=== PATIENT | female | born 1970 | race Caucasian/White ===

== ENCOUNTER → 2019-11-15 | Outpatient (CLI) | payer BC ==
[~2019-11-15] MED LIST: ALBU17AE3 IH; ASP325T PO; DOCU100C37 PO; FERR325T18 PO; HYDR-34 PO; IBUP-1773 PO; IRON45TA2 PO; LEVO500T69 PO; METH4TAB PO; SIME80TA16 PO
== END ==
LOC: CARD 10:41
PROVIDERS: ATTEND Internal Medicine Cardiovascular Disease
DX: R07.89 Other chest pain (principal); E78.2 Mixed hyperlipidemia; I10 Essential (primary) hypertension; Z72.0 Tobacco use
CPT/HCPCS: 93306

== ENCOUNTER → 2019-11-27 | Outpatient (CLI) | payer BC ==
[~2019-11-27] VITALS: Ht 167 cm; Wt 100.0 kg
[~2019-11-27] MED LIST changes: +CATHETER FLUSH 10 ML SYR IV PRN
[2019-11-27 09:24] VITALS: BP 137/107
--- NOTE | 2019-11-27 17:06 | STRESS TEST ---
DATE OF SERVICE: 11/27/2019 EXERCISE MYOVIEW STRESS TEST REPORT REFERRING PHYSICIAN: Dr. Grover. Baseline heart rate is 74, baseline blood pressure 125/75. Baseline EKG is sinus rhythm with no ischemic changes. In summary, the patient was injected with 10.99 mCi of technetium-99 Myoview and the resting images were obtained. Then, the patient started exercising with baseline heart rate, blood pressure and EKG mentioned above, was able to exercise for 5 minutes 15 seconds on standard Geovany protocol. With peak exercise level, EKG was showing minimal nondiagnostic changes. No acute ischemic abnormality was noted. During recovery, heart rate and blood pressure returned to baseline. EKG returned to baseline. The resting and stress images were reviewed and compared in the short axis, horizontal long axis, and vertical long axis views. Review of the images showed diaphragmatic attenuation with decreased uptake involving the whole inferior wall and inferolateral wall. SSS is 9, SDS 9. Mild reversibility was noted. TID value 0.9. On the gated images, the left ventricle appeared to be normal size with normal contractility. Calculated ejection fraction 81%. CONCLUSION: 1. Fair exercise tolerance, a total of 5 minutes 15 seconds on standard Geovany protocol, total of 7.1 METS achieving 93% of maximum expected heart rate. 2. Severe hypertensive response to exercise with peak blood pressure 202/109 returned to baseline during recovery. 3. Nondiagnostic EKG changes with exercise returned to baseline during recovery. 4. Diaphragmatic attenuation with reversible ischemia involving the whole inferior wall and inferolateral wall. 5. Normal left ventricular size with normal contractility. Calculated ejection fraction 81%. Job ID: [id number] DocumentID: [id number] Dictated Date: 11/27/2019 14:46:10 Candy Forming Machine Operator Date: 11/27/2019 17:05:21 Dictated By: YENY COLE MD
== END ==
LOC: CARD 07:02
PROVIDERS: ATTEND Internal Medicine Cardiovascular Disease
DX: E78.2 Mixed hyperlipidemia (principal); I10 Essential (primary) hypertension; R07.89 Other chest pain; Z72.0 Tobacco use
CPT/HCPCS: 78452; 93017

== ENCOUNTER 2019-12-02 09:54 | Observation (INO) | payer BC ==
[~2019-12-02] VITALS: Ht 167.7 cm; Wt 98.0 kg
[2019-12-02] VITALS (11 sets, daily range): BP systolic 94–138; BP diastolic 62–95
[~2019-12-02 09:54] MED LIST changes: -CATHETER FLUSH 10 ML SYR IV PRN
[2019-12-02] MEDS ORDERED: ASPIRIN 81 MG CHEW (CHILDREN'S ASA) ONE (09:56)
[2019-12-02] MEDS ORDERED: NITROGLYCERIN 0.4 MG SL TABS BTL 25'S SL ONE (09:56)
[2019-12-02 10:13] LABS: BASOPHILS % (AUTO) 0 % (0-10); EOSINOPHILS # (AUTO) 0.1 10^3/uL (0.0-0.3); EOSINOPHILS % (AUTO) 1 % (0-10); HEMATOCRIT 45 % (35-52); HEMOGLOBIN 15.3 G/DL (11.5-16.0); LYMPHOCYTES # (AUTO) 2.2 X 10^3 (1.0-4.0); LYMPHOCYTES % (AUTO) 13 % (12-44); MEAN CORPUSCULAR HEMOGLOBIN 31 PG (25-34); MEAN CORPUSCULAR HGB CONC 34 G/DL (32-36); MEAN CORPUSCULAR VOLUME 92 FL (80-99); MEAN PLATELET VOLUME 10.2 FL (7.4-10.4); MONOCYTES % (AUTO) 6 % (0-12); NEUTROPHILS # (AUTO) 13.7 X 10^3 (1.8-7.8); NEUTROPHILS % (AUTO) 80 % (42-75); PLATELET COUNT 415 10^3/uL (130-400); WHITE BLOOD COUNT 17.1 10^3/uL (4.3-11.0)
[2019-12-02] MEDS ORDERED: ASPIRIN 81 MG CHEW (CHILDREN'S ASA) PO ONE (10:15)
[2019-12-02] MEDS ORDERED: NITROGLYCERIN 0.4 MG SL TABS BTL 25'S SL PRN ×2 (10:15→13:00)
[2019-12-02 10:30] LABS: INR 0.9 (0.8-1.4); PROTHROMBIN TIME PATIENT 12.1 SEC (12.2-14.7)
--- NOTE | 2019-12-02 10:30 | Diagnostic Imaging Report ---
INDICATION: Chest pain Portable chest 10:22 AM Heart size and pulmonary vascularity are normal. Lungs are clear. There are no effusions or pneumothoraces. IMPRESSION: Negative chest. Dictated by: Dictated on workstation # [id number]
--- NOTE | 2019-12-02 10:46 | ED Chest Pain ---
General Chief Complaint: Chest Pain Stated Complaint: CHEST PAIN Nursing Triage Note: PT AMB TO RM 2 WITH COMPLAINT OF CP. STATES STARTED AROUND 5 AM THIS MORNING. STATES PAIN RADIATES TO HER LEFT ELBOW. IS SCHEDULED FOR HEART CATH ON THE WITH DR EID FOR BLOCKAGES Nursing Sepsis Screen: No Definite Risk Source: patient, old records Exam Limitations: no limitations History of Present Illness Date Seen by Provider: Dec 02, 2019 Time Seen by Provider: 09:59 Initial Comments This 49-year-old woman presents to the emergency room with chest pain that started around 5:15 this morning. Pain was accompanied by diaphoresis and radiated to her left elbow. Pain dissipated but then she had 2 additional episodes at work. She had a fourth episode while in the emergency room. She related that episode as 5/10 on the pain scale. This pain resolved with nitroglycerin. She had a stress test performed last month and reversible ischemia was noted. She has a scheduled heart catheter with Dr. Eid for December 10. She has risk factors including hypertension, hyperlipidemia, and tobacco use. Allergies and Home Medications Allergies Coded Allergies: iopamidol (Unverified Allergy, Intermediate, RASH, ITCHING, 05/26/16) Home Medications Docusate Sodium 100 Mg Capsule, 100 MG PO BID PRN for CONSTIPATION Prescribed by: CHRIS MELENDZE on 05/27/16950 Ferrous Sulfate 325 Mg Tablet, 325 MG PO DAILY Prescribed by: CHRIS MELENDEZ on 05/27/16950 Hydrocodone Bit/Acetaminophen 1 Each Tablet, 1-2 EA PO Q6H PRN for PAIN Prescribed by: CHRIS MELENDEZ on 05/27/16950 Ibuprofen 600 Mg Tablet, 600 MG PO Q6H PRN for PAIN Prescribed by: CHRIS MELENDEZ on 05/27/16950 Simethicone 80 Mg Tab.chew, 40 MG PO TID PRN for INDIGESTION Prescribed by: CHRIS MELENDEZ on 05/27/16950 Patient Home Medication List Home Medication List Reviewed: Yes Review of Systems Review of Systems Constitutional: see HPI, diaphoresis EENTM: No Symptoms Reported Respiratory: No Symptoms Reported Cardiovascular: See HPI Gastrointestinal: No Symptoms Reported Genitourinary: No Symptoms Reported Musculoskeletal: no symptoms reported Skin: no symptoms reported Psychiatric/Neurological: No Symptoms Reported Endocrine: No Symptoms Reported Hematologic/Lymphatic: No Symptoms Reported Past Dsubzkv-Zcdgcg-Fhrdou Hx Past Med/Social Hx: Reviewed Nursing Past Med/Soc Hx Patient Social History Alcohol Use: Regular Use Number of Drinks Today: AA Alcohol Beverage of Choice: Beer Recreational Drug Use: No Smoking Status: Current Everyday Smoker Type Used: Cigarettes Recent Foreign Travel: No Contact w/Someone Who Travel: No Recent Infectious Disease Expo: No Recent Hopitalizations: Yes (TRANSFUSION FOR ANEMIA 3 UNITS) Immunizations Up To Date Tetanus Booster (TDap): Unknown Seasonal Allergies Seasonal Allergies: No Past Medical History Surgeries: Yes Hysterectomy Respiratory: No Cardiac: Yes (reversible ischemia on stress test) High Cholesterol, Hypertension Neurological: No : No Reproductive Disorders: Yes Female Reproductive Disorders: Menstrual Problems Sexually Transmitted Disease: No HIV/AIDS: No Genitourinary: No Gastrointestinal: No Musculoskeletal: No Endocrine: No Are Your Blood Sugars Over 250: No HEENT: No Cancer: No Psychosocial: No Integumentary: No Adverse Reaction/Blood Tranf: No Yes Family Medical History Reviewed and Corrections made No Pertinent Family Hx, Heart Disease (a grandfather had [place]) Physical Exam Vital Signs Vital Signs - First Documented 12/02/19 09:55 Pulse 114 Resp 17 B/P (MAP) 187/118 (141) Pulse Ox 98 O2 Delivery Room Air Capillary Refill : Less Than 3 Seconds Height, Weight, BMI Height: 5'8.00" Weight: 197lbs. 0.0oz. 89.086908lq; 34.00 BMI Method:Stated General Appearance: No Apparent Distress, WD/WN, Obese HEENT: PERRL/EOMI, Normal ENT Inspection Neck: Normal Inspection; No JVD Respiratory: Chest Non Tender, Lungs Clear, Normal Breath Sounds, No Accessory Muscle Use, No Respiratory Distress Cardiovascular: Regular Rate, Rhythm, No Edema, No Murmur, Normal Peripheral Pulses Gastrointestinal: Normal Bowel Sounds, Non Tender, Soft Extremity: Normal Inspection, Non Tender, No Calf Tenderness, No Pedal Edema Neurologic/Psychiatric: Alert, Oriented x3, No Motor/Sensory Deficits, Normal Mood/Affect, hand potter II-XII Norm as Tested Skin: Normal Color, Warm/Dry Progress/Results/Core Measures Results/Orders Lab Results Laboratory Tests Test 12/02/19 10:05 12/02/19 10:35 12/02/19 11:25 Range/Units White Blood Count 17.1 H 4.3-11.0 10^3/uL Red Blood Count 4.92 4.35-5.85 10^6/uL Hemoglobin 15.3 11.5-16.0 G/DL Hematocrit 45 35-52 % Mean Corpuscular Volume 92 80-99 FL Mean Corpuscular Hemoglobin 31 25-34 PG Mean Corpuscular Hemoglobin Concent 34 32-36 G/DL Red Cell Distribution Width 16.0 H 10.0-14.5 % Platelet Count 415 H 130-400 10^3/uL Mean Platelet Volume 10.2 7.4-10.4 FL Neutrophils (%) (Auto) 80 H 42-75 % Lymphocytes (%) (Auto) 13 12-44 % Monocytes (%) (Auto) 6 0-12 % Eosinophils (%) (Auto) 1 0-10 % Basophils (%) (Auto) 0 0-10 % Neutrophils # (Auto) 13.7 H 1.8-7.8 X 10^3 Lymphocytes # (Auto) 2.2 1.0-4.0 X 10^3 Monocytes # (Auto) 1.0 0.0-1.0 X 10^3 Eosinophils # (Auto) 0.1 0.0-0.3 10^3/uL Basophils # (Auto) 0.0 0.0-0.1 10^3/uL Neutrophils % (Manual) 76 % Lymphocytes % (Manual) 15 % Monocytes % (Manual) 7 % Eosinophils % (Manual) 2 % Basophils % (Manual) 0 % Band Neutrophils 0 % Anisocytosis SLIGHT Prothrombin Time 12.1 L 12.2-14.7 SEC INR Comment 0.9 0.8-1.4 Activated Partial Thromboplast Time 29 24-35 SEC Sodium Level 137 135-145 MMOL/L Potassium Level 4.1 3.6-5.0 MMOL/L Chloride Level 98 98-107 MMOL/L Carbon Dioxide Level 27 21-32 MMOL/L Anion Gap 12 5-14 MMOL/L Blood Urea Nitrogen 14 7-18 MG/DL Creatinine 0.86 0.60-1.30 MG/DL Estimat Glomerular Filtration Rate > 60 BUN/Creatinine Ratio 16 Glucose Level 154 H 70-105 MG/DL Calcium Level 9.3 8.5-10.1 MG/DL Corrected Calcium 8.5-10.1 MG/DL Magnesium Level 1.9 1.6-2.4 MG/DL Total Bilirubin 0.4 0.1-1.0 MG/DL Aspartate Amino Transf (AST/SGOT) 44 H 5-34 U/L Alanine Aminotransferase (ALT/SGPT) 83 H 0-55 U/L Alkaline Phosphatase 123 40-136 U/L Myoglobin 25.1 10.0-92.0 NG/ML Troponin I < 0.028 <0.028 NG/ML C-Reactive Protein High Sensitivity 1.53 H 0.00-0.50 MG/DL Total Protein 7.5 6.4-8.2 GM/DL Albumin 4.6 H 3.2-4.5 GM/DL Urine Color [place] H Urine Clarity CLEAR Urine pH 5.5 5-9 Urine Specific [place] >=1.030 1.016-1.022 Urine Protein NEGATIVE NEGATIVE Urine Glucose (UA) NEGATIVE NEGATIVE Urine Ketones NEGATIVE NEGATIVE Urine Nitrite NEGATIVE NEGATIVE Urine Bilirubin NEGATIVE NEGATIVE Urine Urobilinogen 0.2 < = 1.0 MG/DL Urine Leukocyte Esterase NEGATIVE NEGATIVE Urine RBC (Auto) NEGATIVE NEGATIVE Urine RBC NONE /HPF Urine WBC 0-2 /HPF Urine Squamous Epithelial Cells 5-10 /HPF Urine Crystals NONE /LPF Urine Bacteria FEW H /HPF Urine Casts NONE /LPF Urine Mucus MODERATE H /LPF Urine Culture Indicated NO My Orders Orders - SACHA ANN MD Nitroglycerin 0.4 Mg Btl 25's (Nitrostat (12/02/19 09:56) Aspirin Chewable Tablet (Baby Aspirin Ch (12/02/19 09:56) Cbc With Automated Diff (12/02/19 10:08) Magnesium (12/02/19 10:08) Chest 1 View, Ap/Pa Only (12/02/19 10:08) Ekg Tracing (12/02/19 10:08) Comprehensive Metabolic Panel (12/02/19 10:08) Myoglobin Serum (12/02/19 10:08) Protime With Inr (12/02/19 10:08) Partial Thromboplastin Time (12/02/19 10:08) O2 (12/02/19 10:08) Monitor-Rhythm Ecg Trace Only (12/02/19 10:08) Lipid Panel (12/03/19 06:00) Ed Iv/Invasive Line Start (12/02/19 10:08) Troponin I (12/02/19 10:08) Nitroglycerin 0.4 Mg Btl 25's (Nitrostat (12/02/19 10:15) Aspirin Chewable Tablet (Baby Aspirin Ch (12/02/19 10:15) Manual Differential (12/02/19 10:05) Hs C Reactive Protein (12/02/19 11:09) Ua Culture If Indicated (12/02/19 11:09) Medications Given in ED Current Medications Medications Dose Ordered Sig/Khloe Route Start Time Stop Time Status Last Admin Dose Admin Aspirin 81 mg STK-MED ONCE .ROUTE 12/02/19 09:56 12/02/19 10:01 DC 12/02/19 10:06 324 MG Nitroglycerin 0.4 mg STK-MED ONCE SL 12/02/19 09:56 12/02/19 10:01 DC 12/02/19 10:07 0.4 MG Vital Signs/I&O 12/02/19 12/02/19 09:55 09:55 Pulse 114 Resp 17 B/P (MAP) 187/118 (141) Pulse Ox 98 O2 Delivery Room Air Room Air Blood Pressure Mean: 141 Progress Progress Note #1: Time: 10:47 Progress Note Chest x-ray unremarkable. EKG demonstrated sinus tachycardia with no ST changes. Labs are pending. Patient was pain-free at the time of my exam. Progress Note #2: Time: 11:55 Progress Note Patient has had no further chest pain. Workup was unremarkable except for leukocytosis. Chest x-ray was negative for signs of infection. UA is pending. CRP was added and was low. Case was reviewed with Dr. Eid. Because of patien t's suspicious presentation and multiple risk factors, she will be admitted with planned to perform angiography this afternoon. Patient has already received aspirin and nitroglycerin. A single dose of Lovenox will be given in the ER. Initial ECG Impression Date: Dec 02, 2019 Initial ECG Impression Time: 09:59 Initial ECG Rate: 116 Initial ECG Rhythm: S.Tach Comment Sinus tachycardia with no ST elevation or depression. No abnormal intervals or axis deviation. Diagnostic Imaging Diagonstic Imaging: Xray Plain Films/CT/US/NM/MRI: chest Comments Chest x-ray viewed by me and report reviewed. See report below: NAME: DI ROBLES Dave [facility] REC#: [id number] PT STATUS: REG ER : 1970 PHYSICIAN: SACHA ANN MD ADMIT DATE: 12/02/19/ER Signed Date of Exam:12/02/19 CHEST 1 VIEW, AP/PA ONLY INDICATION: Chest pain Portable chest 10:22 AM Heart size and pulmonary vascularity are normal. Lungs are clear. There are no effusions or pneumothoraces. IMPRESSION: Negative chest. Dictated by: Dictated on workstation # [id number] Dict: 12/02/19 1027 Trans: 12/02/19 1030 [facility] [id number] Interpreted by: ELIZABET TRAVIS MD Electronically signed by: ELIZABET TRAVIS MD 12/02/19 1030 Departure Communication (Admissions) Time/Spoke to Admitting Phy: 11:33 Dr. Eid Impression Primary Impression: Chest pain Qualified Codes: R07.9 - Chest pain, unspecified Additional Impression: Leukocytosis Qualified Codes: D72.829 - Elevated white blood cell count, unspecified Disposition: ADMITTED INPATIENT Condition: Improved Admissions Decision to Admit Reason: Admit from ER (General) Decision to Admit/Date: Dec 02, 2019 Time/Decision to Admit Time: 10:35 Departure-Patient Inst. Referrals: NANCY ARELLANO DO (PCP/Family) Primary Care Physician SACHA ANN MD Dec 02, 2019 10:45
[2019-12-02 10:56] LABS: ANISOCYTOSIS SLIGHT; BAND NEUTROPHILS 0 %; BASOPHILS % (MANUAL) 0 %; EOSINOPHILS % (MANUAL) 2 %; LYMPHOCYTES % (MANUAL) 15 %; MONOCYTES % (MANUAL) 7 %; NEUTROPHILS % (MANUAL) 76 %
[2019-12-02 11:04] LABS: ALANINE AMINOTRANSFERASE 83 U/L (0-55); ALBUMIN 4.6 GM/DL (3.2-4.5); ALKALINE PHOSPHATASE 123 U/L (40-136); BILIRUBIN,TOTAL 0.4 MG/DL (0.1-1.0); BUN/CREATININE RATIO 16; CALCIUM 9.3 MG/DL (8.5-10.1); CARBON DIOXIDE 27 MMOL/L (21-32); CHLORIDE 98 MMOL/L (98-107); CREATININE SERUM 0.86 MG/DL (0.60-1.30); GFR ESTIMATED > 60; GLUCOSE 154 MG/DL (70-105); MAGNESIUM 1.9 MG/DL (1.6-2.4); POTASSIUM 4.1 MMOL/L (3.6-5.0); SODIUM 137 MMOL/L (135-145); TOTAL PROTEIN 7.5 GM/DL (6.4-8.2)
[2019-12-02 11:37] LABS: BILIRUBIN,URINE NEGATIVE (NEGATIVE); CLARITY,URINE CLEAR; COLOR,URINE AMBER; GLUCOSE, URINE (UA) NEGATIVE (NEGATIVE); KETONES,URINE NEGATIVE (NEGATIVE); LEUKOCYTE ESTERASE ,URINE NEGATIVE (NEGATIVE); NITRITE,URINE NEGATIVE (NEGATIVE); PH,URINE 5.5 (5-9); PROTEIN,URINE NEGATIVE (NEGATIVE)
[2019-12-02 11:50] LABS: BACTERIA,URINE FEW /HPF; WBC,URINE 0-2 /HPF
[2019-12-02] MEDS ORDERED: ENOXAPARIN 100 MG/1 ML (LOVENOX) SYR SC ONE (12:00)
--- NOTE | 2019-12-02 12:30 | NUR ---
DR COLE HERE TO SEE PT
--- NOTE | 2019-12-02 12:40 | NUR ---
SBAR report received from Margaux VELASQUEZ. Patient arrived to room ICU12 at 1240. Patient is alert and oriented. VSS. Patient denies pain att. Bed in lowest position, call light in reach, will continue to monitor. family is at bedside.
--- NOTE | 2019-12-02 12:44 | Cardiology History & Physical ---
HPI-Cardiology Cardiology Consultation Date of Consultation 12/02/19 Date of Admission Time Seen by Provider: 12:41 Indication: chest pain HPI 49 years old lady with history of hypertension, hyperlipidemia, had an abnormal stress test and scheduled for cardiac catheterization as an outpatient. Started to have more frequent episodes of chest pain described as dull achiness on the left arm radiating to left side of the chest associated with diaphoresis and shortness of breath lasting for about 5-10 minutes and resolving spontaneously, had multiple episodes over the weekend and another episode early this morning then had another episode in the emergency room and responded to sublingual nitroglycerin. PMH-Cardiology Immunizations Up To Date Tetanus Booster (DTap): Unknown Seasonal Allergies Seasonal Allergies: No Surgeries Yes Respiratory No Cardiovascular Yes (reversible ischemia on stress test) Neurological No Reproductive System Hx Reproductive Disorders: Yes Sexually Transmitted Disease: No HIV/AIDS: No Female Reproductive Disorders: Menstrual Problems Genitourinary No Gastrointestinal No Musculoskeletal No Endocrine No HEENT No Cancer No Psychosocial No Integumentary No Blood Transfusions Adverse Rxn to Transfusion: No Social History Patient Social History Marrital Status: Employed/Student: employed Alcohol Use: Regular Use Recreational Drug Use: No Recent Foreign Travel: No Contact w/other who traveled: No Recent Infectious Disease Expo: No Family Hx Significant Family History: No Pertinent Family Hx, Heart Disease Other Noncontributory ROS-Cardiology Review of Systems General: No Chills, No Night Sweats, No Fatigue, No Malaise, No Appetite HEENT: No Head Aches, No Visual Changes, No Eye Pain, No Ear Pain, No Dysphasia, No Sinus Congestion, No Post Nasal Drip, No Sore Throat Pulmonary: Dyspnea; No Cough, No Pleuritic Chest Pain Cardiovascular: Chest Pain, Palpitations; No: Orthopnea, Paroxysmal Noc. Dyspnea, Edema, Lt Headedness Gastrointestinal: No: Nausea, Vomiting, Abdominal Pain, Diarrhea, Constipation, Melena, Hematochezia Genitourinary: No Dysuria, No Frequency, No Incontinence, No Hematuria, No Retention Musculoskeletal: No: neck pain, shoulder pain, arm pain, back pain, hand pain, leg pain, foot pain Neurological: No: Weakness, Numbness, Incoordination, Change in speech, Confusion, Seizures Home Medications & Allergies Allergies: Coded Allergies: iopamidol (Unverified Allergy, Intermediate, RASH, ITCHING, 05/26/16) Home Medication List Reviewed: Yes Exam-Cardiology Vital Signs Vital Signs Date Time Temp Pulse Resp B/P (MAP) Pulse Ox O2 Delivery O2 Flow Rate FiO2 12/02/19 12:18 80 17 122/90 (141) 98 Room Air Exam General Appearance: Alert, Oriented X3, Cooperative, No Acute Distress HEENT: Atraumatic, PERRLA Respiratory: Clear to Auscultation, Normal Air Movement Cardiovascular: Regular Rate, Normal S1, Normal S2, No Murmurs Abdominal: Normal Bowel Sounds, Soft, No Tenderness, No Hepatosplenomegaly, No Masses Extremities: No Clubbing, No Cyanosis, No Edema, Normal Pulses, No Tenderne ss/Swelling Skin: No Rashes, No Breakdown, No Significant Lesion Neuro: Normal Gait, Normal Speech, Strength at 5/5 X4 Ext, Normal Tone, Sensation Intact Psych/Mental Status: Mental Status NL, Mood NL Results Labs Labs Laboratory Tests 12/02/19 10:05: White Blood Count 17.1H, Red Blood Count 4.92, Hemoglobin 15.3, Hematocrit 45, Mean Corpuscular Volume 92, Mean Corpuscular Hemoglobin 31, Mean Corpuscular Hemoglobin Concent 34, Red Cell Distribution Width 16.0H, Platelet Count 415H, M jaden Platelet Volume 10.2, Neutrophils (%) (Auto) 80H, Lymphocytes (%) (Auto) 13, Monocytes (%) (Auto) 6, Eosinophils (%) (Auto) 1, Basophils (%) (Auto) 0, Neutrophils # (Auto) 13.7H, Lymphocytes # (Auto) 2.2, Monocytes # (Auto) 1.0, Eosinophils # (Auto) 0.1, Basophils # (Auto) 0.0, Neutrophils % (Manual) 76, Lymphocytes % (Manual) 15, Monocytes % (Manual) 7, Eosinophils % (Manual) 2, Basophils % (Manual) 0, Band Neutrophils 0, Anisocytosis SLIGHT, Prothrombin Time 12.1L, INR Comment 0.9, Activated Partial Thromboplast Time 29 12/02/19 10:35: Sodium Level 137, Potassium Level 4.1, Chloride Level 98, Carbon Dioxide Level 27, Anion Gap 12, Blood Urea Nitrogen 14, Creatinine 0.86, Estimat Glomerular Filtration Rate > 60, BUN/Creatinine Ratio 16, Glucose Level 154H, Calcium Level 9.3, Corrected Calcium , Magnesium Level 1.9, Total Bilirubin 0.4, Aspartate Amino Transf (AST/SGOT) 44H, Alanine Aminotransferase (ALT/SGPT) 83H, Alkaline Phosphatase 123, Myoglobin 25.1, Troponin I < 0.028, C-Reactive Protein High Sensitivity 1.53H, Total Protein 7.5, Albumin 4.6H 12/02/19 11:25: Urine Color AMBERH, Urine Clarity CLEAR, Urine pH 5.5, Urine Specific [place] >=1.030, Urine Protein NEGATIVE, Urine Glucose (UA) NEGATIVE, Urine Ketones NEGATIVE, Urine Nitrite NEGATIVE, Urine Bilirubin NEGATIVE, Urine Urobilinogen 0.2, Urine Leukocyte Esterase NEGATIVE, Urine RBC (Auto) NEGATIVE, Urine RBC NONE, Urine WBC 0-2, Urine Squamous Epithelial Cells 5-10, Urine Crystals NONE, Urine Bacteria FEWH, Urine Casts NONE, Urine Mucus MODERATEH, Urine Culture Indicated NO A/P-Cardiology Admission Diagnosis Chest pain Hypertension Hyperlipidemia Shortness of breath Admission Status: Observation Assessment/Plan Chest pain nonspecific etiology, resembling angina, stress test was done on November 27, 2019 showing fair exercise tolerance for 5 minutes and 15 seconds with severe hypertensive response to exercise and diaphragmatic attenuation and reversible ischemia involving the whole inferior wall and inferolateral wall, stress score of 9, SDS 9, normal ejection fraction, has been having frequent episodes of chest pain. She is on the Continuity Writer scheduled for December 10, I will proceed with a cardiac catheterization today. Hyperlipidemia, evaluate lipid profile and metabolic profile Hypertension, maintained on Toprol-XL 25 mg daily lisinopril HCT 20/25 mg daily, monitor blood pressure Tobaccoism, we discussed limiting smoking and if possible stop smoking Social alcohol use. Drinks whiskey shots daily, mild elevation in liver enzymes. We discussed avoiding alcohol. Repeat liver enzymes evaluation in one month. BMI is 35, we discussed diet and exercise. Clinical Quality Measures AMI/AHF: ASA po Prior to arrival: Yes (81) YENY COLE MD Dec 02, 2019 12:44 pm
--- NOTE | 2019-12-02 12:44 | Cardiac Procedure Note-CS/ASA ---
Pre-Procedure Note Pre-Op Procedure Note H&P Reviewed The H&P was reviewed, patient examined and no changes noted. Date H&P Reviewed: Dec 02, 2019 Time H&P Reviewed: 12:44 Conscious Sedation Pre-Proced Time 12:44 ASA Score 3 For ASA 3 and 4: Consider anesthesia and medical clearance. Also, for patients with a history of failed moderate sedation consider anesthesia. Airway Lungs Heart ASA score ASA 1: a normal healthy patient ASA 2: a patient with a mild systemic disease (mid diabetes, controlled hypertension, obesity x ASA 3: a patient with a severe systemic disease that limits activity (angina, COPD, prior Myocardial infarction) ASA 4: a patient with an incapacitating disease that is a constant threat to life (CHF, renal failure) ASA 5: a moribund patient not expected to survive 24 hrs. (ruptured aneurysm) ASA 6: a declared brain- patient whose organs are being harvested. For emergent operations, add the letter E after the classification Mallampati Classification Grade 3 Sedation Plan Analgesia, Amnesia, Plan communicated to team members, Discussed options with patient/fam, Discussed risks with patient/fam The patient is an appropriate candidate to undergo the planned procedure, sedation, and anesthesia. The patient immediately re-assessed prior to indication. YENY COLE MD Dec 02, 2019 12:44 pm
[2019-12-02] MEDS ORDERED: CATHETER FLUSH 10 ML SYR IV PRN (13:00)
[2019-12-02] MEDS ORDERED: NS IV 1000 ML 1,000 ML IV SCH (13:00)
[2019-12-02] MEDS ORDERED: morphine INJ 4 MG/ML 1 ML (VIAL/SYRINGE) IV PRN (13:00)
[2019-12-02] MEDS ORDERED: ONDANSETRON 4 MG/2 ML (SDV) Z0FRAN IV PRN (13:00)
[2019-12-02] MEDS ORDERED: LIDOCAINE 1% INJ 20 ML 20 ML VIAL ONE (13:14)
[2019-12-02] MEDS ORDERED: HEParin (CATH LAB) 2,000 ML IV ONE (13:14)
[2019-12-02] MEDS ORDERED: MIDAZOLAM 5 MG/5 ML (VERSED) VIAL ONE (14:48)
[2019-12-02] MEDS ORDERED: fentaNYL INJECTION 100 MCG/2 ML AMP ONE ×2 (14:48→15:55)
[2019-12-02] MEDS ORDERED: VERAPAMIL 5 MG/2 ML (CALAN) VIAL IV ONE (15:15)
[2019-12-02] MEDS ORDERED: HEParin 1000 UNIT/ML (10ML VIAL) FOR BOLUS ONE (15:16)
[2019-12-02] MEDS ORDERED: NITRO DRIP 25000 MCG/D5W 250 ML IV ONE (15:16)
[2019-12-02] MEDS ORDERED: diphenhydrAMINE 50 MG/ML INJ (BENADRYL) ONE (15:20)
[2019-12-02] MEDS ORDERED: CLOPIDOGREL 300 MG (PLAVIX) TABLET PO ONE (16:03)
[2019-12-02] MEDS ORDERED: MIDAZOLAM 2 MG/2 ML (VERSED) VIAL ONE (16:03)
[2019-12-02] MEDS ORDERED: PATIENT MAY USE OWN MEDS, ALL PO SCH (16:15)
--- NOTE | 2019-12-02 16:19 | Cardiac Cath Report ---
Cardiac Cath Report Physician (s)/Chief Deputy Coroner (s) Physician YENY COLE MD Pre-Procedure Diagnosis Pre-Procedure Diagnosis: Coronary artery disease Post-Procedure Note Procedure Start Date: Dec 02, 2019 Name of Procedure: Left heart catheterization Stenting to the circumflex artery Findings/Procedure Note PROCEDURE NOTE: 49 years old lady with history of hypertension, has been having chest pain, had an abnormal stress test, was scheduled for cardiac catheterization, started to have accelerated angina, admitted for monitoring and possible cardiac catheterization. After explaining the procedure to the patient, all pros and cons were explained, all questions were answered. The patient signed the consent and then she was placed on the cardiac catheterization laboratory. Groin was prepped SL fashion local anesthesia was used. Sheath placed in the right radial artery, [place] catheter advanced to the left ventricular cavity, pressure was measured, pullback LV to aorta was done then intubated the right and left coronary system and angina gram was done. Patient was noted to have severe stenosis in the circumflex artery. Given additional 4000 units of heparin, FL 3.5 guide was used through the radial sheath then BMW wire was advanced through the circumflex artery, primary stenting using 3 x 18 mm Joana stent expanded to 3.15 mm with excellent results. At the end of the procedure the sheath was removed. Vascular band was used FINDINGS: Hemodynamics LV 99/61, end-diastolic pressure of 16 Aorta 108/70 mean of 83 ANATOMY: Left Main is free of obstructive disease Left Anterior Descending is mildly calcified at the midportion, tortuous artery with mild disease nonobstructive disease Left Circumflex has severe stenosis at the midportion 95 percent stenosis, successful primary stenting using Joana 3 x 18 mm expanded to 3.15 mm with excellent results Right Coronory Artery is dominant artery with mild disease nonobstructive disease LV Gram was not done, pressure was measured CONCLUSION: 1. 95 percent stenosis in the mid circumflex artery successful primary stenting using 3 x 18 Joana stent drug-eluting stent expanded to 3.15 with excellent results 2. Calcification in the mid LAD, mild disease nonobstructive disease, tortuous artery 3. Mild disease in the midright coronary artery nonobstructive disease 4. Normal left ventricular end-diastolic pressure DISCUSSION AND RECOMMENDATION: Patient was loaded with aspirin and Plavix, started on Lipitor and Toprol. Continue to monitor Anesthesia Type: Conscious Sedation Estimated blood loss (mL): 25 ml Contrast Amount: 61 ml Total Radiation Dose: 517 mGy Post-Procedure Diagnosis Post-operative diagnosis: Unstable angina Coronary artery disease Hypertension Hyperlipidemia YENY COLE MD Dec 02, 2019 16:19
--- NOTE | 2019-12-02 16:30 | NUR ---
Patient arrived back to room cu 12 from maintenance shop laborer at 1630. Patient is alert and oriented. Patient educated by this nurse on the importance of not using her right arm, due to heart cath insertion site, until the vasc band has been removed to avoid complications. Patient agreed. Patients bed in lowest position, call light in reach. patients family is at bedside. VSS. Will continue to closely monitor.
[2019-12-02] MEDS: NS IV 1000 ML 1,000 ML IV SCH ×2 (18:01→22:20)
--- NOTE | 2019-12-02 18:40 | NUR ---
Patient arrived back to room cu 12 from filling station laborer at 1630. Patient is alert and oriented. Patient educated by this nurse on the importance of not using her right arm, due to heart cath insertion site, until the vasc band has been removed to avoid complications. Patient agreed. Patients bed in lowest position, call light in reach. patients family is at bedside. VSS. Will continue to closely monitor. Addendum: 12/02/19 at 1844 by FELIPE CONN RN wrong time
--- NOTE | 2019-12-02 19:30 | NUR ---
This nurse called at 1930 to update him on patient having a small amount of oozing at right radial heart cath puncture site. I explained that I reinserted 4ml of air into vasc band and that patient is having some pain above the right radial site, there is a small amount of swelling above site but no discoloration. right radial pulse is strong and normal. order received for percocet 5/325mg PO Q4H PRN for pain and to slowly remove air from vasc band and monitor closely. this nurse updated Kailey VELASQUEZ insurance job titles nurse who is taking over care of patient about updating and the order that was received.
[2019-12-02] MEDS: oxyCODONE/APAP 5/325MG (PERCOCET 5) TABLET PO PRN (19:53)
[2019-12-02] MEDS ORDERED: meTOprolol TARTRATE 25 MG (LOPRESSOR) TABLET PO SCH (21:00)
[2019-12-03] MEDS: oxyCODONE/APAP 5/325MG (PERCOCET 5) TABLET PO PRN (01:33)
[2019-12-03 04:00] VITALS: BP 136/86
[2019-12-03 04:04] LABS: HEMOGLOBIN 13.1 G/DL (11.5-16.0); MEAN PLATELET VOLUME 9.9 FL (7.4-10.4); RED CELL DISTRIBUTION WIDTH 15.2 % (10.0-14.5); WHITE BLOOD COUNT 9.2 10^3/uL (4.3-11.0)
[2019-12-03 04:34] LABS: BUN/CREATININE RATIO 19; CALCIUM 8.4 MG/DL (8.5-10.1); CARBON DIOXIDE 24 MMOL/L (21-32); CHLORIDE 104 MMOL/L (98-107); CHOLESTEROL 216 MG/DL (< 200); CREATININE SERUM 0.74 MG/DL (0.60-1.30); GFR ESTIMATED > 60; GLUCOSE 107 MG/DL (70-105); HDL CHOLESTEROL 45 MG/DL (40-60); POTASSIUM 4.4 MMOL/L (3.6-5.0); SODIUM 137 MMOL/L (135-145); TRIGLYCERIDES 263 MG/DL (<150); VLDL CHOLESTEROL 53 MG/DL (5-40)
[2019-12-03] MEDS ORDERED: PANT40SU PO (07:41)
[2019-12-03] MEDS ORDERED: CLOP75TA28 PO (07:41)
[2019-12-03] MEDS ORDERED: ATOR20TA66 PO (07:41)
[2019-12-03] MEDS ORDERED: ASPI-983 PO (07:41)
[2019-12-03] MEDS ORDERED: MTP25TSR PO (07:41)
--- NOTE | 2019-12-03 07:42 | Discharge Inst-Post CATH ---
Discharge Inst-CATH/EP Problems Reviewed?: Yes Post Cardiac Cath/EP D/C Inst Follow Up/Plan Appointment with Dr. Eid's office in 2-4 weeks <b>CARDIAC CATH/EP PROCEDURE DISCHARGE INSTRUCTIONS</b> ACTIVITY * Go Home directly and rest. * Limit activity of the leg (or wrist if it was used) for 7 days including aerobics, swimming, jogging, bicycling, etc. * Restrict stair-climbing for 7 days if possible, if not, climb up with your non-cath leg, then bring together on the same step. * Avoid lifting, pushing, pulling or excessive movement of the affected extremity for 7 days. * Customary sexual activity may be resumed after 2 days-use caution not to use a position that strains or causes pain to the affected extremity. * No driving for 24 hours. * NO SMOKING. * Avoid straining for bowel movements for 7 days. * Gentle walking on level ground is allowed. * Returning to work will depend on the type of procedure and the results. Your doctor will discuss this with you. CALL YOUR DOCTOR FOR ANY OF THE FOLLOWING: *If bleeding from the puncture site occurs- Apply gentle pressure to site with clean cloth and call your doctor or EMS. * If a knot or lump forms under the skin, increases in size, or causes pain. * If bruising appears to be worsening or moving further down your leg instead of disappearing. * Temperature above 101 F. CARE OF YOUR GROIN INCISION; * Bruising or purple discoloration of the skin near the puncture site is common. * You may shower only, no bathtub bathing for 5 days. Be careful to avoid slipping as your leg may feel stiff. * If a closure device was used on your femoral artery, please see the attached guide regarding care of the device and your leg. * Leave dressing on FOR 24 hours. CARE OF YOUR WRIST INCISION; * Bruising or purple discoloration of the skin near the puncture site is common. * You may shower. * DO NOT submerge wrist. * Leave dressing on FOR 24 hours. YENY EID MD Dec 03, 2019 07:42
--- NOTE | 2019-12-03 07:44 | Cardiology Progress Note ---
Subjective Date Seen by Provider: Dec 03, 2019 Time Seen by Provider: 07:42 Subjective/Events-last exam Patient is laying down in bed, no chest pain, feeling better Review of Systems General: No Chills, No Night Sweats, No Fatigue, No Malaise, No Appetite, No Other HEENT: No Head Aches, No Visual Changes, No Eye Pain, No Ear Pain, No Dysphasia, No Sinus Congestion, No Post Nasal Drip, No Sore Throat, No Other Pulmonary: No Dyspnea, No Cough, No Pleuritic Chest Pain, No Other Cardiovascular: No: Chest Pain, Palpitations, Orthopnea, Paroxysmal Noc. Dyspnea, Edema, Lt Headedness, Other Objective-Cardiology Exam Last Set of Vital Signs Vital Signs 12/03/19 04:00 Temp 36.6 Pulse 61 Resp 16 B/P (MAP) 136/86 (103) Pulse Ox 97 O2 Delivery Room Air Capillary Refill : Less Than 3 Seconds I&O Intake and Output 12/03/19 00:00 Intake Total 1250 ml Output Total 600 ml Balance 650 ml Intake Oral 250 ml IV Total 1000 ml Output Urine Total 600 ml # Voids 1 Daily Weight Change No General: Alert, Oriented X3, Cooperative, No Acute Distress HEENT: Atraumatic, PERRLA Neck: Supple, No JVD Lungs: Clear to Auscultation, Normal Air Movement Heart: Regular Rate, Normal S1, Normal S2, No Murmurs Abdomen: Normal Bowel Sounds, Soft, No Tenderness, No Hepatosplenomegaly, No Masses Extremities: No Clubbing, No Cyanosis, No Edema, Normal Pulses, No Tenderness/Swelling Skin: No Rashes, No Breakdown, No Significant Lesion Neuro: Normal Gait, Normal Speech, Strength at 5/5 X4 Ext, Normal Tone, Sensation Intact Psych/Mental Status: Mental Status NL, Mood NL Results Lab Laboratory Tests 12/02/19 10:05 12/02/19 10:35 12/03/19 03:48 A/P-Cardiology Admission Diagnosis Unstable angina Coronary artery disease Hypertension Hyperlipidemia Assessment/Plan Unstable angina, better after stenting Coronary artery disease, cardiac catheterization carried out showing severe stenosis in the mid circumflex artery successful primary stenting using Joana 3 x 18 mm expanded to 3.15 with excellent results, wrist is healing well, small bruising around the access area Hyperlipidemia, LDL 158, educated on compliance with diet, started on Lipitor 20 mg daily and she was started on fish oil daily Hypertension, maintained on Toprol-XL 25 mg daily lisinopril HCT 20/25 mg daily, monitor blood pressure Tobaccoism, educated and encouraged on smoking cessation Social alcohol use. Drinks whiskey shots daily, mild elevation in liver enzymes. We discussed avoiding alcohol. Repeat liver enzymes evaluation in one month. BMI is 35, we discussed diet and exercise. Clinical Quality Measures AMI/AHF: ASA po Prior to arrival: Yes (81) DVT/VTE Risk/Contraindication: Risk Factor Score Per Nursin RFS Level Per Nursing on Admit: 1=Low/No VTE PPX YENY COLE MD Dec 03, 2019 07:44
[2019-12-03 08:00] VITALS: BP 122/73
[2019-12-03] MEDS ORDERED: LISI1TAB26 PO (08:39)
--- NOTE | 2019-12-03 08:43 | NUR ---
I SPOKE WITH THE PT AFTER THE DISCHARGE WAS STARTED- LISINOPRIL/HCTZ 20/25MG ONCE DAILY APPLICATION SECURITY ARCHITECT ON 10-24-2019 #30. THIS WAS NOT INCLUDED ON THE MED REC AND SO IT WAS NOT CONTINUED ON THE MED REC. I LET THE ICU NURSE KNOW WHAT MED THE PT WAS ON AND DR. COLE WANTED IT TO BE CONTINUED. I ADDED IT TO THE MED REC AND LET THE NURSE KNOW
[2019-12-03] MEDS ORDERED: CLOPIDOGREL 75 MG (PLAVIX) TABLET PO SCH (09:00)
[2019-12-03] MEDS ORDERED: ASPIRIN E.C. 81 MG (ECOTRIN) TAB PO SCH ×2 (09:00)
--- NOTE | 2019-12-03 09:07 | NUR ---
IV removed, tip intact. VSS. Entire discharge packet discussed with patient. new medications an medications to continue all discussed with patient. patient educated on the importance of taking her medications as prescribed. heart catheterization puncture site care discussed with patient. gauze and opsite on site att, dressing is clean, dry and intact. Patient stated that all of her questions have been answered, follow up appointment scheduled for patient. patients is her ride home he is at bedside. this nurse walked with patient down to front entrance at [phone] where she got in her private vehicle to go home.
--- NOTE | 2019-12-03 09:16 | NUR ---
This nurse clarified with if he wanted her to continue taking enybhleoqf14/25mg 1 tab PO daily, stated that he wanted the patient to continue taking it.
== END 2019-12-03 09:07 | disposition home or self-care (01) ==
LOC: EDUNIT# 09:54 → ER 09:55 → ICU 11:54
PROVIDERS: ADMIT Internal Medicine Cardiovascular Disease; ATTEND Internal Medicine Cardiovascular Disease
DX: I25.110 Atherosclerotic heart disease of native coronary artery with unstable angina pectoris (principal); I10 Essential (primary) hypertension; E78.5 Hyperlipidemia, unspecified; E78.00 Pure hypercholesterolemia, unspecified; D72.829 Elevated white blood cell count, unspecified; F17.210 Nicotine dependence, cigarettes, uncomplicated
CPT/HCPCS: 36415; 71045; 80048; 80053; 80061; 81000; 83735; 83874; 84484; 85007; 85027; 85347; 85610; 85730; 86141; 93005; 93041; 93458

== ENCOUNTER → 2020-08-26 | Outpatient (CLI) | payer BC ==
[~2020-08-26] VITALS: Ht 167 cm; Wt 94.0 kg
[~2020-08-26] MED LIST changes: +ASPI-1238 PO; +ATOR20TA66 PO; +CATHETER FLUSH 10 ML SYR IV PRN; +CLOP75TA28 PO; +LISI1TAB26 PO; +MTP25TSR PO; +PANT40SU PO; +REGADENOSON 0.4 MG/5 ML SYR (LEXISCAN) IV ONE
[2020-08-26 09:03] VITALS: BP 170/90
--- NOTE | 2020-08-26 15:18 | Cardiology Stress Test Report ---
Stress Test Report Date of Procedure/Referring: Date of Procedure: Aug 26, 2020 PCP Yney Eid MD Admitting Physician Eddi Grover DO Indications: Chest pain Baseline Heart Rate: 57 Baseline Blood Pressure: Blood Pressure Systolic: 170 Blood Pressure Diastolic: 90 Baseline Vitals Vital Signs Date Time Temp Pulse Resp B/P (MAP) Pulse Ox O2 Delivery O2 Flow Rate FiO2 08/26/20 09:03 57 170/90 (116) 98 Baseline EKG: Baseline EKG: normal sinus rhythm Summary After explaining the procedure to the patient, she signed a consent and then brought to the stress nuclear laboratory. Patient received 0.4 mg Lexiscan for stress test, ECG, heart rate and blood pressure were monitored continuously. Resting and stress dose of radio tracer were injected, imaging was acquired and reviewed in short axis, horizontal long axis and vertical long axis views. TID: 1.1 SSS: 1 SDS: 1 EF: 74 1. Patient tolerated Lexiscan well 2. No significant ischemia or infarction on SPECT images 3. Normal left ventricular size, EF 74 percent YENY EID MD Aug 26, 2020 15:18
== END ==
LOC: CARD 07:30
PROVIDERS: ATTEND Internal Medicine Cardiovascular Disease
DX: R07.89 Other chest pain (principal)
CPT/HCPCS: 78452; 93017; A9502

== ENCOUNTER → 2020-12-10 | Outpatient (CLI) | payer BC ==
[~2020-12-10] MED LIST changes: -CATHETER FLUSH 10 ML SYR IV PRN; -REGADENOSON 0.4 MG/5 ML SYR (LEXISCAN) IV ONE
--- NOTE | 2020-12-10 14:57 | Diagnostic Imaging Report ---
Indication: Angina and coronary atherosclerosis PA and lateral views of the chest are obtained with comparison made study of 12/02/2019. FINDINGS: Heart size and pulmonary vascularity are within normal limits, and the lungs are clear, bilaterally. IMPRESSION: Unremarkable chest. Dictated by: Dictated on workstation # [id number]
== END ==
LOC: RAD 14:31
PROVIDERS: ATTEND Internal Medicine Cardiovascular Disease
DX: I25.10 Atherosclerotic heart disease of native coronary artery without angina pectoris (principal)
CPT/HCPCS: 71046

== ENCOUNTER → 2021-05-17 | Outpatient (CLI) | payer BC ==
--- NOTE | 2021-05-17 12:56 | Diagnostic Imaging Report ---
INDICATION: Routine screening. Comparison is made with prior mammogram from 05/28/2013. 2-D and 3-D bilateral screening mammography was performed with CAD. Scattered fibroglandular densities are identified bilaterally. The parenchymal pattern is stable. No mass or malignant-appearing microcalcifications are seen. Axillae are unremarkable. IMPRESSION: BI-RADS Category 1 No mammographic features suspicious for malignancy are identified. ACR BI-RADS Category 1: Negative. Result letter will be mailed to the patient. Note: At least 10% of breast cancer is not imaged by mammography. Dictated by: Dictated on workstation # [id number]
== END ==
PROVIDERS: ATTEND Obstetrics & Gynecology
DX: Z12.31 Encounter for screening mammogram for malignant neoplasm of breast (principal)
CPT/HCPCS: 77063; 77067

== ENCOUNTER → 2021-06-01 | Outpatient (CLI) | payer BC ==
[~2021-06-01] MED LIST changes: +RT-ALBUTEROL SULF 2.5 MG/3 ML PRE-MIX VIAL INH ONE
== END ==
LOC: RT 14:30
PROVIDERS: ATTEND Nurse Practitioner Family
DX: Z13.83 Encounter for screening for respiratory disorder NEC (principal)
CPT/HCPCS: 94060

== ENCOUNTER 2021-06-18 06:00 | Outpatient (RCR) | payer BC ==
[2021-06-17 15:19] LABS: BASOPHILS % (AUTO) 0 % (0-10); EOSINOPHILS # (AUTO) 0.2 10^3/uL (0.0-0.3); EOSINOPHILS % (AUTO) 1 % (0-10); HEMATOCRIT 39 % (35-52); HEMOGLOBIN 12.8 g/dL (11.5-16.0); LYMPHOCYTES # (AUTO) 1.9 X 10^3 (1.0-4.0); LYMPHOCYTES % (AUTO) 16 % (12-44); MEAN CORPUSCULAR HEMOGLOBIN 32 pg (25-34); MEAN CORPUSCULAR HGB CONC 33 g/dL (32-36); MEAN CORPUSCULAR VOLUME 97 fL (80-99); MEAN PLATELET VOLUME 9.3 fL (9.0-12.2); MONOCYTES # (AUTO) 0.6 X 10^3 (0.0-1.0); MONOCYTES % (AUTO) 5 % (0-12); NEUTROPHILS # (AUTO) 9.5 X 10^3 (1.8-7.8); NEUTROPHILS % (AUTO) 78 % (42-75); PLATELET COUNT 358 10^3/uL (130-400); WHITE BLOOD COUNT 12.2 10^3/uL (4.3-11.0)
--- NOTE | 2021-06-17 15:40 | Diagnostic Imaging Report ---
HISTORY: Productive cough and shortness of air. COMPARISON: 12/10/2020 TECHNIQUE: 2 views of the chest FINDINGS: Lung volumes are mildly large. There is mild airspace opacity at the right lung base which appears new. There is no pleural effusion or pneumothorax. The cardiac silhouette is normal in size. IMPRESSION: 1. New airspace opacity at the right lung base, concerning for infection in the appropriate clinical setting. Dictated by: Dictated on workstation # [id number]
[~2021-06-18 06:00] MED LIST changes: -LISI1TAB26 PO; +LISI1TAB48 PO; -RT-ALBUTEROL SULF 2.5 MG/3 ML PRE-MIX VIAL INH ONE
== END 2021-09-15 | disposition home or self-care (01) ==
LOC: RAD 06:00
PROVIDERS: ATTEND Nurse Practitioner Family
DX: R91.8 Other nonspecific abnormal finding of lung field (principal); R06.02 Shortness of breath
CPT/HCPCS: 36415; 71046; 85025; 87070; 87077; 87185; 87205

== ENCOUNTER → 2021-07-21 | Outpatient (CLI) | payer BC ==
[~2021-07-21] MED LIST changes: +LISI1TAB26 PO; -LISI1TAB48 PO
--- NOTE | 2021-07-21 16:12 | Diagnostic Imaging Report ---
CLINICAL INDICATIONS: Followup pneumonia. EXAM: Chest x-ray, PA and lateral views. COMPARISON: Chest x-ray dated 06/17/2021. FINDINGS: Lungs/pleura: There is interval improved aeration of the right lung base. The lungs are clear. There is no pneumothorax. There is no pleural effusion. Mediastinum: Unremarkable. Pulmonary vasculature: Unremarkable. Heart: Unremarkable. Bones/extrathoracic soft tissue: There are degenerative spurs involving the thoracic spine. IMPRESSION: There is interval improved aeration of the right lung base. The lungs are clear. There is no radiographic evidence of acute cardiopulmonary process. Dictated by: Dictated on workstation # [id number]
== END ==
LOC: RAD 15:04
PROVIDERS: ATTEND Nurse Practitioner Family
DX: J18.9 Pneumonia, unspecified organism (principal)
CPT/HCPCS: 71046

== ENCOUNTER → 2021-08-18 | Outpatient (CLI) | payer BC ==
[2021-08-18 07:48] LABS: CREATININE SERUM 0.74 MG/DL (0.60-1.30)
--- NOTE | 2021-08-18 08:54 | Diagnostic Imaging Report ---
EXAMINATION: CT chest without contrast. TECHNIQUE: Multiple contiguous axial images were obtained through the chest without the use of intravenous contrast. All CT scans use one or more of the following dose optimizing techniques: automated exposure control, MA and/or KvP adjustment based on patient size and exam type or iterative reconstruction. HISTORY: COPD. COMPARISON: 05/21/2014. FINDINGS: The heart size is within normal limits. No pericardial effusion is present. Calcified aortic and coronary atherosclerotic plaque is seen without evidence of aneurysm. There is no mediastinal, hilar, or axillary lymphadenopathy. A nodule seen in the right lower lobe measuring 0.5 cm. No new suspicious pulmonary nodules. No evidence of pulmonary mass. There are no focal areas of consolidation. No central endobronchial obstructing lesions are identified. There is no pleural effusion or pneumothorax. The osseous structures demonstrate no acute abnormalities. Limited views of the upper abdominal structures demonstrate no acute abnormalities. There is hepatic steatosis. There is partial visualization of a previously noted cystic lesion in the right hepatic lobe. Both adrenal glands are unremarkable. IMPRESSION: 1. Stable nodule in the right lower lobe measuring 0.5 cm. No new suspicious pulmonary nodules. No focal consolidations. 2. Hepatic steatosis. There is partial visualization of a cystic focus in the right hepatic lobe. This could be further evaluated with liver protocol CT or MRI. Dictated by: Dictated on workstation # [id number]
== END ==
LOC: RAD 08:15
PROVIDERS: ATTEND Nurse Practitioner Family
DX: K76.0 Fatty (change of) liver, not elsewhere classified (principal); J44.9 Chronic obstructive pulmonary disease, unspecified; R91.1 Solitary pulmonary nodule
CPT/HCPCS: 36415; 71250; 82565; 84520

== ENCOUNTER 2022-04-11 10:21 | Emergency (ER) | payer BC ==
[~2022-04-11] VITALS: Ht 167 cm; Wt 95.0 kg
[~2022-04-11 10:21] MED LIST changes: -LISI1TAB26 PO; +LISI1TAB48 PO
[2022-04-11] MEDS ORDERED: ASPIRIN 81 MG CHEW (CHILDREN'S ASA) PO ONE (11:15)
[2022-04-11] MEDS ORDERED: methylPREDNISolone 125 MG (Solu-MEDROL) VIAL IVP ONE (11:15)
[2022-04-11] MEDS ORDERED: RT-ALBUTEROL/IPRATROPIUM 3 ML (DUONEB) VIAL INH ONE (11:15)
--- NOTE | 2022-04-11 11:16 | ED Cardiac General ---
History of Present Illness General Chief Complaint: Chest Pain Stated Complaint: CP,SOB,SINUS Nursing Triage Note: PT AMB TO RM 1 PT CO OF C/P STARTING ON MONDAY, WAS SEEN MONDAY BY PROVIDER AND TESTED - FOR COVID. PT HAS COUGH, INTERMITTENT CHEST PAIN THAT GOES UP TO 7/10 AT TIMES. PT DENIES FEVERS Source: patient Exam Limitations: no limitations History of Present Illness Date Seen by Provider: Apr 11, 2022 Time Seen by Provider: 11:13 Initial Comments Patient is a 52-year-old female with a history of coronary artery disease, COPD presents ED with chest pain shortness of breath and cough. Symptoms started about a month ago with a wet productive cough with phlegm production. His cough has progressed to got worse since last . She has been having intermittent left and right sharp chest pain as high as 7 out of 10 pain that is intermittent. Pain in her ribs secondary to the cough. Associated shortness of breath with ambulation and walking. Patient states that she was checked for COVID on at the clinic which was negative. She does use an inhaler at home without much improvement. She denies of any abdominal pain, fever, vomiting, diarrhea, body aches, chills, headache, sore throat, ear pain, denies of any urinary symptoms Allergies and Home Medications Allergies Coded Allergies: iopamidol (Unverified Allergy, Intermediate, RASH, ITCHING, 05/26/16) Patient Home Medication List Home Medication List Reviewed: Yes Aspirin (Aspirin EC) 81 Mg Tablet.dr, 81 MG PO DAILY Prescribed by: YENY COLE on 12/03/19 0741 Atorvastatin Calcium (Atorvastatin Calcium) 20 Mg Tablet, 20 MG PO HS Prescribed by: YENY COLE on 12/03/19 0741 Clopidogrel Bisulfate (Clopidogrel) 75 Mg Tablet, 75 MG PO DAILY Prescribed by: YENY COLE on 12/03/19 0741 Docusate Sodium (Docusate Sodium) 100 Mg Capsule, 100 MG PO BID PRN for CONSTIPATION Prescribed by: CHRIS MELENDEZ on 05/27/16 0951 Doxycycline Monohydrate (Doxycycline Monohydrate) 100 Mg Tablet, 100 MG PO BID Prescribed by: ATIYA JUAREZ on 04/11/22 1246 Ferrous Sulfate (Ferrous Sulfate) 325 Mg Tablet, 325 MG PO DAILY Prescribed by: CHRIS MELENDEZ on 05/27/16 0951 Ipratropium/Albuterol Sulfate (Iprat-Albut 0.5-3(2.5) mg/3 ml) 0.5 Mg-3 Mg (2.5 Mg Base)/3 Ml Ampul.neb, 3 ML IH Q4H PRN for SHORTNESS OF BREATH Prescribed by: ATIYA JUAREZ on 04/11/22 1246 Lisinopril/Hydrochlorothiazide (Lisinopril-Hctz 20-25 mg Tab) 1 Each Tablet, 1 EACH PO DAILY, (Reported) Entered as Reported by: FREDIS SAAB on 12/03/19 0839 Metoprolol Succinate (Metoprolol Succinate) 25 Mg Tab.er.24h, 25 MG PO DAILY Prescribed by: YENY COLE on 12/03/19 0741 Pantoprazole Sodium (Protonix) 40 Mg Granpkt.dr, 40 MG PO DAILY Prescribed by: YENY COLE on 12/03/19 0741 Prednisone (Prednisone) 50 Mg Tab, 50 MG PO DAILY Prescribed by: ATIYA JUAREZ on 04/11/22 1246 Simethicone (Simethicone) 80 Mg Tab.chew, 40 MG PO TID PRN for INDIGESTION Prescribed by: CHRIS MELENDEZ on 05/27/1651 Review of Systems Review of Systems Constitutional: No chills, No malaise EENTM: No Double Vision, No Eye Pain Respiratory: Cough, Shortness of Air, SOA With Exertion Cardiovascular: Chest Pain; Denies Edema, Denies Irregular Heart Rate Gastrointestinal: Denies Abdominal Pain, Denies Diarrhea, Denies Nausea, Denies Vomiting Genitourinary: Denies Burning, Denies Flank Pain Musculoskeletal: No back pain, No joint pain Skin: No change in color, No change in hair/nails Psychiatric/Neurological: Denies Anxiety, Denies Depressed All Other Systems Reviewed Negative Unless Noted: Yes Past Keizrrt-Yvwsbn-Mzqruy Hx Immunizations Up To Date Tetanus Booster (TDap): Unknown Seasonal Allergies Seasonal Allergies: No Past Medical History Surgeries: Yes Hysterectomy Respiratory: No Cardiac: Yes (reversible ischemia on stress test) High Cholesterol, Hypertension Neurological: No Reproductive Disorders: Yes Female Reproductive Disorders: Menstrual Problems Sexually Transmitted Disease: No HIV/AIDS: No Genitourinary: No Gastrointestinal: No Musculoskeletal: No Endocrine: No HEENT: No Cancer: No Psychosocial: No Integumentary: No Adverse Reaction/Blood Tranf: No Family Medical History No Pertinent Family Hx, Heart Disease Physical Exam Vital Signs Vital Signs - First Documented 04/11/22 04/11/22 10:23 11:38 Temp 36.7 Pulse 104 Resp 32 B/P (MAP) 142/98 (113) Pulse Ox 98 O2 Delivery Room Air Capillary Refill : Less Than 3 Seconds Height, Weight, BMI Height: 5'8.00" Weight: 197lbs. 0.0oz. [id number]; 34.00 BMI Method:Stated General Appearance: No Apparent Distress, WD/WN HEENT: PERRL/EOMI, TMs Normal, Normal ENT Inspection, Pharynx Normal Neck: Full Range of Motion, Normal Inspection, Non Tender, Supple Respiratory: Chest Non Tender, No Accessory Muscle Use, No Respiratory Distress, Expiration, Wheezing Cardiovascular: Regular Rate, Rhythm, No Edema, No Gallop, No JVD Gastrointestinal: Normal Bowel Sounds, No Organomegaly, No Pulsatile Mass, Non Tender, Soft Rectal: Normal Exam Neurologic/Psychiatric: Alert, Oriented x3, No Motor/Sensory Deficits, Normal Mood/Affect, cutting torch operator II-XII Norm as Tested Skin: Normal Color, Warm/Dry Progress/Results/Core Measures Results/Orders Lab Results Laboratory Tests Test 04/11/22 10:30 Range/Units White Blood Count 9.6 4.3-11.0 10^3/uL Red Blood Count 4.71 3.80-5.11 10^6/uL Hemoglobin 14.8 11.5-16.0 g/dL Hematocrit 44 35-52 % Mean Corpuscular Volume 94 80-99 fL Mean Corpuscular Hemoglobin 31 25-34 pg Mean Corpuscular Hemoglobin Concent 33 32-36 g/dL Red Cell Distribution Width 14.4 10.0-14.5 % Platelet Count 359 130-400 10^3/uL Mean Platelet Volume 9.8 9.0-12.2 fL Immature Granulocyte % (Auto) 0 % Neutrophils (%) (Auto) 72 42-75 % Lymphocytes (%) (Auto) 22 12-44 % Monocytes (%) (Auto) 5 0-12 % Eosinophils (%) (Auto) 1 0-10 % Basophils (%) (Auto) 1 0-10 % Neutrophils # (Auto) 6.9 1.8-7.8 10^3/uL Lymphocytes # (Auto) 2.1 1.0-4.0 10^3/uL Monocytes # (Auto) 0.4 0.0-1.0 10^3/uL Eosinophils # (Auto) 0.1 0.0-0.3 10^3/uL Basophils # (Auto) 0.1 0.0-0.1 10^3/uL Immature Granulocyte # (Auto) 0.0 0.0-0.1 10^3/uL Prothrombin Time 13.3 12.2-14.7 SEC INR Comment 1.0 0.8-1.4 Activated Partial Thromboplast Time 31 24-35 SEC D-Dimer < 0.27 0.00-0.49 UG/ML Sodium Level 138 135-145 MMOL/L Potassium Level 4.1 3.6-5.0 MMOL/L Chloride Level 99 98-107 MMOL/L Carbon Dioxide Level 24 21-32 MMOL/L Anion Gap 15 H 5-14 MMOL/L Blood Urea Nitrogen 18 7-18 MG/DL Creatinine 0.74 0.60-1.30 MG/DL Estimat Glomerular Filtration Rate 97 BUN/Creatinine Ratio 24 Glucose Level 122 H 70-105 MG/DL Calcium Level 9.1 8.5-10.1 MG/DL Corrected Calcium 8.5-10.1 MG/DL Magnesium Level 1.8 1.6-2.4 MG/DL Total Bilirubin 0.4 0.1-1.0 MG/DL Aspartate Amino Transf (AST/SGOT) 33 5-34 U/L Alanine Aminotransferase (ALT/SGPT) 36 0-55 U/L Alkaline Phosphatase 118 40-136 U/L Myoglobin 25.0 10.0-92.0 NG/ML Troponin I < 0.028 <0.028 NG/ML B-Type Natriuretic Peptide 11.3 <100.0 PG/ML Total Protein 7.6 6.4-8.2 GM/DL Albumin 4.6 H 3.2-4.5 GM/DL Lipase 19 8-78 U/L Procalcitonin 0.02 <0.10 NG/ML My Orders Orders - DALILA LLANES Cbc With Automated Diff (04/11/22 11:10) Magnesium (7/11/22 11:10) Chest 1 View, Ap/Pa Only (04/11/22 11:10) Ekg Tracing (04/11/22 11:10) Comprehensive Metabolic Panel (04/11/22 11:10) Myoglobin Serum (04/11/22 11:10) Protime With Inr (04/11/22 11:10) Partial Thromboplastin Time (04/11/22 11:10) Monitor-Rhythm Ecg Trace Only (04/11/22 11:10) Ed Iv/Invasive Line Start (04/11/22 11:10) Lipase (04/11/22 11:10) Bnp [place] (04/11/22 11:10) Fibrin Degradation Products (04/11/22 11:10) Troponin I Corine (04/11/22 11:10) Aspirin Chewable Tablet (Baby Aspirin Ch (04/11/22 11:15) Procalcitonin (Pct) (04/11/22 11:10) Methylprednisolone Sod Succ (Solu-Medrol (04/11/22 11:15) Albuterol/Ipra Inhalation Soln (Duoneb I (04/11/22 11:15) Svn Small Volume Nebulizer (04/11/22 11:10) Medications Given in ED Current Medications Medications Dose Ordered Sig/Khloe Route Start Time Stop Time Status Last Admin Dose Admin Albuterol/ Ipratropium 3 ml ONCE ONCE INH 04/11/22 11:15 04/11/22 11:16 DC 04/11/22 11:35 3 ML Aspirin 324 mg ONCE ONCE PO 04/11/22 11:15 04/11/22 11:16 DC 04/11/22 12:21 324 MG Methylprednisolone Sodium Succinate 125 mg ONCE ONCE IVP 04/11/22 11:15 04/11/22 11:16 DC 04/11/22 12:21 125 MG Vital Signs/I&O 04/11/22 04/11/22 04/11/22 10:23 11:38 12:27 Temp 36.7 Pulse 104 80 Resp 32 18 B/P (MAP) 142/98 (113) 113/81 Pulse Ox 98 96 96 O2 Delivery Room Air Blood Pressure Mean: 113 Comment Sinus rhythm, 97 bpm, QRS duration 89 MS, QTc 393 MS Departure Communication (PCP) Patient vital signs stable. She was not hypoxic or tachycardic. EKG normal sinus rhythm. Cardiac work-up unremarkable. Negative D-dimer. Chest x-ray negative for pneumonia. History of COPD. She does have a history of smoking. Has been using inhaler at home without much improvement. Was given DuoNeb and Solu-Medrol with improvement of her symptoms. She had a recent negative COVID. Chest x-ray was negative for pneumonia. Lab work was otherwise unremarkable and reassuring. Patient appears to have upper respiratory infection which is likely exacerbating her COPD. Due to improvement of symptoms with nebulizer. Will discharge with short burst steroids and canisters for her nebulizer machine. [place] will be discharged for any atypical infection and COPD exacerbation. If any worsening symptoms return back to ED for further evaluation. Return preca ution were discussed with patient. Symptoms appear to be more pulmonary Impression Primary Impression: Bronchitis Disposition: 01 HOME, SELF-CARE Condition: Stable Departure-Patient Inst. Decision time for Depature: 12:18 Referrals: [facility],LOCAL PHYSICIAN (PCP) Primary Care Physician Patient Instructions: Acute Bronchitis Scripts Prednisone (Prednisone) 50 Mg Tab 50 MG PO DAILY for 5 Days, #5 TAB Prov: DALILA LLANES 04/11/22 Doxycycline Monohydrate (Doxycycline Monohydrate) 100 Mg Tablet 100 MG PO BID for 7 Days, #14 TAB Prov: DALILA LLANES 04/11/22 Ipratropium/Albuterol Sulfate (Iprat-Albut 0.5-3(2.5) mg/3 ml) 0.5 Mg-3 Mg (2.5 Mg Base)/3 Ml Ampul.neb 3 ML IH Q4H PRN for SHORTNESS OF BREATH, #30 EACH Prov: DALILA LLANES 04/11/22 DALILA LLANES Apr 11, 2022 11:16
[2022-04-11 11:17] LABS: BASOPHILS # (AUTO) 0.1 10^3/uL (0.0-0.1); BASOPHILS % (AUTO) 1 % (0-10); EOSINOPHILS # (AUTO) 0.1 10^3/uL (0.0-0.3); EOSINOPHILS % (AUTO) 1 % (0-10); HEMATOCRIT 44 % (35-52); HEMOGLOBIN 14.8 g/dL (11.5-16.0); LYMPHOCYTES # (AUTO) 2.1 10^3/uL (1.0-4.0); LYMPHOCYTES % (AUTO) 22 % (12-44); MEAN CORPUSCULAR HEMOGLOBIN 31 pg (25-34); MEAN CORPUSCULAR HGB CONC 33 g/dL (32-36); MEAN CORPUSCULAR VOLUME 94 fL (80-99); MEAN PLATELET VOLUME 9.8 fL (9.0-12.2); MONOCYTES # (AUTO) 0.4 10^3/uL (0.0-1.0); MONOCYTES % (AUTO) 5 % (0-12); NEUTROPHILS # (AUTO) 6.9 10^3/uL (1.8-7.8); NEUTROPHILS % (AUTO) 72 % (42-75); PLATELET COUNT 359 10^3/uL (130-400); WHITE BLOOD COUNT 9.6 10^3/uL (4.3-11.0)
[2022-04-11 11:22] LABS: PROTHROMBIN TIME PATIENT 13.3 SEC (12.2-14.7)
[2022-04-11 11:28] LABS: ALBUMIN 4.6 GM/DL (3.2-4.5); CHLORIDE 99 MMOL/L (98-107); POTASSIUM 4.1 MMOL/L (3.6-5.0); SODIUM 138 MMOL/L (135-145)
[2022-04-11 11:29] LABS: CALCIUM 9.1 MG/DL (8.5-10.1)
[2022-04-11 11:30] LABS: GLUCOSE 122 MG/DL (70-105); TOTAL PROTEIN 7.6 GM/DL (6.4-8.2)
[2022-04-11 11:31] LABS: CARBON DIOXIDE 24 MMOL/L (21-32)
[2022-04-11 11:32] LABS: BILIRUBIN,TOTAL 0.4 MG/DL (0.1-1.0)
[2022-04-11 11:34] LABS: ALKALINE PHOSPHATASE 118 U/L (40-136); CREATININE SERUM 0.74 MG/DL (0.60-1.30); GFR ESTIMATED 97
--- NOTE | 2022-04-11 11:34 | Diagnostic Imaging Report ---
INDICATION: Several day history of chest pain. Cough. TECHNIQUE: Single view chest 11:34 AM. CORRELATION STUDY: 07/21/2021 FINDINGS: The heart size, mediastinal configuration and pulmonary vascularity are within normal limits. The lungs are clear with no consolidating infiltrate. There is no significant effusion or pneumothorax. IMPRESSION: 1. Negative appearing single view chest. Dictated by: Dictated on workstation # [id number]
[2022-04-11 11:35] LABS: BUN/CREATININE RATIO 24
[2022-04-11 11:37] LABS: ALANINE AMINOTRANSFERASE 36 U/L (0-55); MAGNESIUM 1.8 MG/DL (1.6-2.4)
[2022-04-11 11:38] LABS: LIPASE 19 U/L (8-78)
[2022-04-11] MEDS ORDERED: DOXY100T31 PO ×2 (12:20→12:46)
[2022-04-11] MEDS ORDERED: IPRA3AMP31 IH ×2 (12:20→12:46)
[2022-04-11] MEDS ORDERED: PRD50T PO ×2 (12:20→12:46)
[2022-04-11 12:27] VITALS: BP 113/81
== END 2022-04-11 12:27 | disposition home or self-care (01) ==
LOC: EDUNIT# 10:21 → ER 10:23
DX: J40 Bronchitis, not specified as acute or chronic (principal)
CPT/HCPCS: 36415; 71045; 80053; 83690; 83735; 83874; 83880; 84145; 84484; 85025; 85379; 85610; 85730; 93005; 93041; 94640

== ENCOUNTER 2022-06-08 06:20 | Outpatient (CLI) | payer BC ==
[~2022-06-08] VITALS: Ht 170.2 cm; Wt 90.6 kg
[~2022-06-08 06:20] MED LIST changes: +DOXY100T31 PO; +IPRA3AMP31 IH; +PRD50T PO
[2022-06-08] MEDS ORDERED: METO50TA7 PO (08:21)
[2022-06-08] MEDS ORDERED: CLOP75TA28 PO (08:21)
[2022-06-08] MEDS ORDERED: ASPI-999 PO (08:21)
[2022-06-08] MEDS ORDERED: ATOR20TA66 PO (08:21)
[2022-06-08] MEDS ORDERED: PANT40TA52 PO (08:21)
== END 2022-06-08 08:26 | disposition home or self-care (01) ==
LOC: PREOP 06:20
PROVIDERS: ATTEND Surgery
DX: Z01.818 Encounter for other preprocedural examination (principal)

== ENCOUNTER 2022-06-15 09:22 | Day surgery (SDC) | payer BC ==
[~2022-06-15] VITALS: Ht 170 cm; Wt 90.6 kg
[~2022-06-15 09:22] MED LIST changes: +ASPI-999 PO; +METO50TA7 PO; +PANT40TA52 PO
[2022-06-15] MEDS ORDERED: LACTATED RINGERS 1,000 ML IV STA (09:33)
[2022-06-15] MEDS ORDERED: HURRICAINE EXT TUBE (BENZOCAINE) XX PRN (09:45)
[2022-06-15] MEDS ORDERED: LIDOCAINE JELLY 2% 6 ML SYRINGE MM PRN (09:45)
[2022-06-15 10:05] VITALS: BP 116/94
[2022-06-15] MEDS ORDERED: LIDOCAINE 1% INJ 10 ML VIAL INJ ONE (10:30)
[2022-06-15] MEDS ORDERED: MIDAZOLAM 2 MG/2 ML (VERSED) VIAL ONE ×2 (10:48→11:08)
--- NOTE | 2022-06-15 10:48 | Progress Note-Pre Operative ---
Pre-Operative Progress Note Date of Available H&P: Jun 15, 2022 Date H&P Reviewed: Jun 15, 2022 Time H&P Reviewed: 10:00 History & Physical: No changes noted Pre-Operative Diagnosis: GERD, screening colo, left foot lesion FLEX CARTER MD Jun 15, 2022 10:47
[2022-06-15] MEDS ORDERED: PROPOFOL INJECTION 50 ML IV ONE (10:49)
--- NOTE | 2022-06-15 10:50 | Discharge Inst-Surgical ---
D/C Lap Instructions-EMMA Follow Up Activity as tolerated High Fiber Diet 25g or more per day Avoid Alcohol, Caffeine, Spicy [place]inside and Acid foods. Drink 64 fluid oz or more of fluids per day. Symptoms to Report: Fever over 101 degree F, Nausea/Vomiting If any problems/questions: Contact your physician or go to Emergency Room FLEX CARTER MD Jun 15, 2022 10:50
[2022-06-15] MEDS ORDERED: ONDANSETRON 4 MG (ZOFRAN) ORAL DISSOLVE TAB PO PRN (11:00)
[2022-06-15] MEDS ORDERED: ONDANSETRON 4 MG/2 ML (SDV) Z0FRAN IVP PRN (11:00)
[2022-06-15] MEDS ORDERED: proPOfol 200 MG/20 ML (DIPRIVAN) VIAL IV ONE (11:27)
[2022-06-15 11:59] VITALS: BP 103/55
[2022-06-15 12:00] VITALS: BP 106/62
[2022-06-15 12:30] VITALS: BP 109/68
--- NOTE | 2022-06-15 12:34 | Anesthesia-General Post-Op ---
MAC Patient Condition Mental Status/LOC: Same as Preop Cardiovascular: Satisfactory Nausea/Vomiting: Absent Respiratory: Satisfactory Pain: Controlled Complications: Absent Post Op Complications Complications None Follow Up Care/Instructions Patient Instructions None needed. Anesthesiology Discharge Order Discharge Order Patient is doing well, no complaints, stable vital signs, no apparent adverse anesthesia problems. No complications reported per nursing. ELÍAS ISSA DO Jun 15, 2022 12:34
--- NOTE | 2022-06-15 14:13 | Progress Note-Post Operative ---
Post-Operative Progess Note Surgeon (s)/Operating Room Aide (s) Surgeon FLEX CARTER MD Operating Room Aide: none Pre-Operative Diagnosis GERD, screening colo, left foot lesion Post-Operative Diagnosis reflux esophagitis(grade B-C), mild distal esophageal stricture, small HH(2cm), moderate gastritis. stage 3-4 ext and int hemorrhoids, mild rectal prolapse. Procedure & Operative Findings Date of Procedure 06/15/22 Procedure Performed/Findings EGD with bx and balloon dilatation. colonoscopy. Anesthesia Type mac Estimated Blood Loss Estimated blood loss (mL): minimal Specimens/Packing Specimens Removed ge jxn, antrum FLEX CARTER MD Jun 15, 2022 14:13
--- NOTE | 2022-06-15 17:11 | OPERATIVE REPORT ---
DATE OF SERVICE: 06/15/2022 PREOPERATIVE DIAGNOSES: Gastroesophageal reflux disease, symptomatic hemorrhoids, screening colonoscopy, symptomatic lesion, left foot along the plantar surface. POSTOPERATIVE DIAGNOSES: Reflux esophagitis between Grady grade B and C with a mild distal esophageal stricture, small hiatal hernia 2 cm in size, moderate gastritis. No distal obstructions. Between chronic stage III and IV external and internal hemorrhoids, mild rectal prolapse. Lesion of the left foot 1 cm in size consistent with a benign plantar wart. PROCEDURE: EGD with biopsy and balloon dilatation, colonoscopy, excision left foot lesion 1 cm in size. SURGEON: Flex Carter MD ANESTHESIA: Monitored anesthesia care with local. ESTIMATED BLOOD LOSS: Minimal. FINDINGS: Reflux esophagitis between Grady grade B and C with a mild distal esophageal stricture, small hiatal hernia 2 cm in size, moderate gastritis. No distal obstructions. Between chronic stage III and IV external and internal hemorrhoids, mild rectal prolapse. Lesion of the left foot 1 cm in size consistent with a benign plantar wart. DISPOSITION: The patient tolerated the procedure well. INDICATIONS: The patient is a 52-year-old female known to us. She has had symptomatic hemorrhoids for years and she has treated these conservatively. She underwent a colonoscopy in the past due to bleeding, red blood per rectum and does not remember any abnormalities besides the hemorrhoids. She does not report any family history of colon cancer. She also states that she has had issues with reflux and occasional episodes of nausea and vomiting as well as regurgitation. No hematemesis, no coffee ground emesis. She also has a lesion of the plantar aspect of the left foot along the forefoot. This is approximately 1 cm in size and consistent with a benign plantar verruca wart. This is painful. DESCRIPTION OF PROCEDURE: The patient was brought to the endoscopy suite, laid in the left lateral decubitus position. After adequate IV pain and sedative medications and monitored anesthesia care, the mouthpiece was applied. The endoscope was placed in the mouth, visualizing the pharynx and hypopharyngeal region. Vocal cords, epiglottis and vallecula identified and appeared to be normal. The endoscope was then gently intubated into the esophageal opening and esophagus insufflated. The endoscope was then advanced to the first, second and third portion of esophagus at the level of the GE junction, a reflux esophagitis, Grady between grade B and C identified with a mild distal esophageal stricture and intrathoracic GE junction consistent with a hiatal hernia. Biopsy was taken with forceps with visualization of good hemostasis. The endoscope was then advanced in the stomach and endoscope retroflexed, visualizing a small hiatal hernia approximately 2 cm in size. There was a moderate severity gastritis. No formal ulcerations, polyps, or any neoplasms. A biopsy was taken of the antrum to rule out H. pylori with visualization of good hemostasis. The endoscope was then advanced to the pylorus and the first and second portion of the duodenum, which appeared normal with no distal obstructions. The balloon was then placed in the stomach and pulled back to the area of the stricture and then we proceeded with a graded dilatation in a stepwise fashion from 2, 4, then eventually 6 atmospheres of pressure or 20 mm in luminal diameter with moderate resistance and left this in place for approximately 60 seconds. The balloon was then desufflated and removed with visualization of good hemostasis as well as no mucosal tears. The endoscope was then slowly withdrawn while taking a second look and suctioning of residual air with no additional findings. A digital rectal examination was performed, which revealed between chronic stage III and IV external and internal hemorrhoids, which were reducible; however, would immediately come back out. This was a combination of external and internal hemorrhoids. There was no active bleeding. The patient was also coughing, and the patient also did appear to have some level of mild rectal prolapse. There were no palpable masses. The endoscope was then intubated into the anus and rectum gently insufflated. The endoscope was then advanced to the valves of Cheung of the rectum with no polyps or any neoplasms identified. We then proceeded through the sigmoid colon where no diverticulosis identified. The endoscope was then advanced through the remainder of the descending, transverse and ascending colon to the cecum, which appeared normal with no polyps or any neoplasms identified. The endoscope was then slowly withdrawn while taking a second look and suctioning of residual air with no additional findings. The left foot was then prepped and draped in standard surgical fashion. A 1% lidocaine with epinephrine was then used to anesthetize the overlying skin to the lesion. The lesion was then excised in an elliptical shape longitudinally with a 15 blade to the full thickness of the skin. Good hemostasis was observed with direct pressure and the skin edges were then reapproximated with 3-0 nylon interrupted sutures. The wound was then cleaned and covered with gauze. The patient tolerated the procedure well. We will recommend the necessary lifestyle and dietary accommodation including small and more frequent meals, avoidance of eating at night as well as head elevation while lying supine. She also needs to continue the Protonix. However, lifestyle accommodation including smoking and alcohol cessation would be most helpful as well as weight loss. We will also recommend a high fiber diet with fiber supplement, which should equal or exceed 30 grams daily as well as significant amounts of water to promote soft stools on a daily basis. She does have advanced hemorrhoids and if she does continue to be symptomatic from these, our only recommendation would be formal Schafer closed hemorrhoidectomy in the operating room. Job ID: [id number] DocumentID: [id number] Dictated Date: 06/15/2022 12:05:36 Curb Hop Date: 06/15/2022 17:11:26 Dictated By: FLEX CARTER MD MTDD
== END 2022-06-15 13:00 | disposition home or self-care (01) ==
LOC: ENDO 09:22
PROVIDERS: ATTEND Surgery
DX: Z12.11 Encounter for screening for malignant neoplasm of colon (principal); K29.50 Unspecified chronic gastritis without bleeding; K21.00 Gastro-esophageal reflux disease with esophagitis, without bleeding; K22.2 Esophageal obstruction; K64.3 Fourth degree hemorrhoids; K64.8 Other hemorrhoids; K62.3 Rectal prolapse; B07.0 Plantar wart; F17.200 Nicotine dependence, unspecified, uncomplicated

== ENCOUNTER → 2023-02-21 | Outpatient (CLI) | payer BC ==
[~2023-02-21] MED LIST changes: +RT-ALBUTEROL SULF 2.5 MG/3 ML PRE-MIX VIAL INH ONE
== END ==
LOC: RT 14:15
PROVIDERS: ATTEND Nurse Practitioner Family
DX: J44.9 Chronic obstructive pulmonary disease, unspecified (principal)
CPT/HCPCS: 94060; 94726; 94729

== ENCOUNTER → 2023-06-14 | Outpatient (CLI) | payer BC ==
[~2023-06-14] MED LIST changes: +CATHETER FLUSH 10 ML SYR IVP PRN; +REGADENOSON 0.4 MG/5 ML SYR IV ONE; -RT-ALBUTEROL SULF 2.5 MG/3 ML PRE-MIX VIAL INH ONE
[2023-06-14 08:57] VITALS: BP 156/86
--- NOTE | 2023-06-14 11:57 | Cardiology Stress Test Report ---
Stress Test Report Date of Procedure/Referring: Date of Procedure: Jun 14, 2023 PCP No,Local Physician Admitting Physician Admitting Physician: Attending Physician: Alejandra Crawford Baseline Heart Rate: 72 Baseline Blood Pressure: Blood Pressure Systolic: 156 Blood Pressure Diastolic: 86 Baseline Vitals Vital Signs Date Time Temp Pulse Resp B/P (MAP) Pulse Ox O2 Delivery O2 Flow Rate FiO2 06/14/23 08:57 72 156/86 (109) Baseline EKG: Baseline EKG: NSR Summary After explaining the procedure to the patient, she signed a consent and then brought to the stress nuclear laboratory. Patient received 0.4 mg Lexiscan for stress test, ECG, heart rate and blood pressure were monitored continuously. Resting and stress dose of radio tracer were injected, imaging was acquired and reviewed in short axis, horizontal long axis and vertical long axis views. TID: 0.93 SSS: 6 SDS: 5 EF: 85 Patient tolerated Lexiscan well Mild decrease uptake at the base of the anterior wall and anteroseptum with subtle reversibility, overall there is no significant ischemia or infarction on SPECT images Normal left ventricular size, ejection fraction 85% YENY COLE MD Jun 14, 2023 11:57
== END ==
LOC: CARD 06:56
PROVIDERS: ATTEND Physician Assistant
DX: E78.2 Mixed hyperlipidemia (principal)
CPT/HCPCS: 78452; 93017; A9502